=== PATIENT | male | born 1990 | race American Indian/Alaskan Native ===

== ENCOUNTER 2017-02-23 17:21 | Emergency (ER) | payer OTHER ==
[2017-02-23] MEDS ORDERED: PERCOCET 5/325 PO ONE ×2 (21:18→23:45)
--- NOTE | 2017-02-23 22:04 | XRay Report ---
FINAL REPORT EXAM: XR KNEE 3V LT HISTORY: injury COMPARISON: None available. FINDINGS: Three views of the left knee obtained. There is superior positioning of the patella concerning for patellar tendon injury. No associated bony injury. No acute fracture. Medial lateral joint space compartments are preserved. IMPRESSION: Prominent superior positioning the patella concerning for patellar tendon injury. No associated fracture.
--- NOTE | 2017-02-23 22:46 | Emergency Department Report ---
ED Lower Extremity HPI - General Chief Complaint: Extremity Injury, Lower Stated Complaint: LT KNEE PAIN Time Seen by Provider: 02/23/17 20:56 Source: EMS Mode of arrival: Stretcher Limitations: No Limitations - History of Present Illness Initial Comments: She is a 26-year-old [place] female who is presenting with left knee pain. Patient was playing basketball and he came down from jumping for rebound in her snap sound in his left knee he has been unable to ambulate since. Patient states the pain is 8 out of 10. Mostly at the patella. MD Complaint: knee injury -: This afternoon Injury: Knee: Left Severity scale (0 -10): 7 Improves With: nothing Worsens With: weight bearing, movement, palpation Context: jumping - Related Data Previous Rx's Medication Instructions Recorded Last Taken Type HYDROcodone/APAP 5-325 [[place] 1 each PO Q4HR PRN #20 tablet 02/23/17 Unknown Rx 5/325] Ibuprofen [Motrin] 800 mg PO Q8HR PRN #30 tablet 02/23/17 Unknown Rx Allergies Allergy/AdvReac Type Severity Reaction Status Date / Time No Known Allergies Allergy Unverified 02/23/17 19:16 ED Review of Systems ROS: Stated complaint: LT KNEE PAIN Other details as noted in HPI Comment: All other systems reviewed and negative ED Past Medical Hx - Past Medical History Previous Medical History?: No - Surgical History Past Surgical History?: No - Medications Home Medications: Home Medications Medication Instructions Recorded Confirmed Last Taken Type HYDROcodone/APAP 5-325 [[place] 1 each PO Q4HR PRN #20 tablet 02/23/17 Unknown Rx 5/325] Ibuprofen [Motrin] 800 mg PO Q8HR PRN #30 tablet 02/23/17 Unknown Rx ED Physical Exam - General Limitations: No Limitations General appearance: alert, in no apparent distress - Head Head exam: Present: atraumatic, normocephalic - Eye Eye exam: Present: normal appearance - ENT ENT exam: Present: mucous membranes moist - Neck Neck exam: Present: normal inspection - Respiratory Respiratory exam: Present: normal lung sounds bilaterally. Absent: respiratory distress - Cardiovascular Cardiovascular Exam: Present: regular rate, normal rhythm. Absent: systolic murmur, diastolic murmur, rubs, gallop - GI/Abdominal GI/Abdominal exam: Present: soft, normal bowel sounds - Rectal Rectal exam: Present: deferred - Extremities Exam Extremities exam: Present: normal inspection, tenderness (patient has tenderness to the anterior knee. The patella appears to be high riding. Patient is unable to lift his foot off of the bed. There is no anterior drawer. ) - Back Exam Back exam: Present: normal inspection - Neurological Exam Neurological exam: Present: alert, oriented X3 - Psychiatric Psychiatric exam: Present: normal affect, normal mood - Skin Skin exam: Present: warm, dry, intact, normal color. Absent: rash ED Course Vital Signs 02/23/17 02/23/17 02/23/17 19:12 20:00 20:44 Temperature 98.5 F 98.4 F Pulse Rate 85 76 Respiratory 18 Rate Blood Pressure 125/59 107/62 Blood Pressure 125/67 [Right] O2 Sat by Pulse 100 100 96 Oximetry ED Lower Extremity MDM - Radiology Data Radiology results: report reviewed, image reviewed X-ray of the left knee shows a high riding patella there is no fracture seen - Medical Decision Making Patient will be placed in a knee immobilizer and be discharged home Critical care attestation.: If time is entered above; I have spent that time in minutes in the direct care of this critically ill patient, excluding procedure time. ED Disposition Clinical Impression: Patellar tendon rupture Disposition: [id number] TO HOME OR SELFCARE Is pt being admited?: No Does the pt Need Aspirin: No Condition: Fair Instructions: Knee Pain (ED), Patella Tendon Repair (GEN), Knee Immobilizer (ED ) Prescriptions: HYDROcodone/APAP 5-325 [[place] 5/325] 1 each PO Q4HR PRN #20 tablet PRN Reason: Pain Ibuprofen [Motrin] 800 mg PO Q8HR PRN #30 tablet PRN Reason: Pain Referrals: COLUMBA JESSICA MD [Staff Physician] - 3-5 Days
[2017-02-23] MEDS ORDERED: PERCOCET 5/325 ONE (23:44)
[2017-02-23 23:50] VITALS: BP 126/71
== END 2017-02-24 00:15 | disposition home or self-care (01) ==
LOC: ED 17:21
DX: S76.112A Strain of left quadriceps muscle, fascia and tendon, initial encounter (principal); Y93.67 Activity, basketball; Y92.89 Other specified places as the place of occurrence of the external cause; Y99.8 Other external cause status